=== PATIENT | female | born 1980 | race Caucasian/White ===

== ENCOUNTER → 2023-07-11 10:23 | Outpatient (REF) | payer BC, SELFPAY | LOC: RCS 10:23 | PROVIDERS: ATTENDING PHYSICIAN Family Medicine | DX: R00.2 Palpitations (principal) | CPT/HCPCS: 93005 ==

== ENCOUNTER 2023-07-23 21:21 | Emergency (ER) | payer BC, SELFPAY ==
[2023-07-23 21:26] VITALS: BP 114/75
--- NOTE | 2023-07-23 21:37 | ED.GENMED ---
History of Present Illness
General
Chief Complaint: Chest Pain
Time Seen by Provider: 07/23/23 21:37
Travel History
Have you had any contact with someone who has COVID-19?: No
Do you have any symptoms of coronavirus? Fever > 100 degrees, chills, cough, shortness of breath, sore throat, loss of taste or smell, muscle aches, or headache?: No
History of Present Illness
History of Present Illness:
HPI: Patient presents with chest pain and was seen by PMD for this about a week ago. This is described as a chest pressure sensation but also has palpitations 'in my throat' and also some burning sensation in the left arm. She also wondered if
stress or anxiety could be a contributing factor.
EXAM:
GENERAL: Well appearing in no distress
HEENT: Moist oral mucosa
CARDIOVASCULAR: No murmurs, normal heart rate, regular rhythm, No chest wall tenderness
PULMONARY: No respiratory distress, breath sounds are clear and equal
ABDOMEN: Soft with no peritoneal signs, no tenderness
NEUROLOGIC: Excellent strength all extremities, no coordination deficits
PSYCHIATRIC: Appropriate mental status, normal insight and judgement
EXTREMITIES: Nontender, no edema, moves all extremities equally
SKIN: No rash, no lesions
TIME OF INITIAL ENCOUNTER: 11:15 PM
NUMBER AND COMPLEXITY OF PROBLEMS ADDRESSED AT THE ENCOUNTER
� Chronic conditions affecting care: Has had chest pain and near syncope in the past but no significant chronic comorbidities
� Acute Exacerbation and/or Progression of Chronic Illness: This is an acute problem
� Differential Diagnosis includes: Stress/anxiety, ACS, pulmonary etiology unlikely
AMOUNT AND/OR COMPLEXITY OF DATA TO BE REVIEWED AND ANALYZED
� I performed an independent evaluation of and my interpretation is:
EKG: Sinus 63, normal axis, no acute ST abnormality, no change from 07/11/2023, first-degree AV block noted since 12/08/2022
CT:
X-rays:I personally viewed chest x-ray and see no acute abnormality
Laboratory Studies: CBC, chemistries, troponin negative
Other:
� Review of other/old records: Patient was admitted here 1 year ago related to infected kidney stone; I reviewed the EKG from 12 days ago
� Clinical information was obtained by an independent historian: Spoke to at bed
� Prescriptions/Medications Considered but not given:
� Further testing considered but not performed:
RISK OF COMPLICATIONS AND/OR MORBIDITY OR MORTALITY OF PATIENT MANAGEMENT
� Social determinants of health affecting care: Lives at home
� Discussion with other providers:
� Escalation of care including admission/observation vs risk of discharge considered: The patient appears comfortable. Troponin negative despite a week of intermittent symptoms. EKG is normal. She does not have an appointment
to see [facility] until [facility] pain hotline used.
Phy Exam
Physical Exam
Physical Exam:
See HPI
Scores
Heart Score for Chest Pain Patients
STEMI patient?: Not applicable
Course
Orders/Labs/Results
Orders:
Orders
07/23/23 21:25
Electrocardiogram (*1) Urgent
Reason for Study: Chest Pain
Cardiac Monitoring- Treatment ONCE
EKG- Treatment ONCE
IV Insert/Care/Rem.- Treatment PRN
O2 Therapy [RESP] Urgent
Titrate/Wean O2 to maintain O2 sat greater than (%): 90
Special Instructions: Maintain sats >/=90%
Pulse Ox/spot Check [RESP] Urgent
Quantity: 1
Special Instructions: ON ROOM AIR
07/23/23 21:57
Complete Blood Count/With Diff Urgent
Comprehensive Metabolic Panel Urgent
Troponin I Urgent
07/23/23 23:31
CR Chest - 2 Views Urgent
Comment:
Reason For Exam: cp
Abnormal Lab Results
07/23/23
21:57
RBC 3.91 L 10^6/uL
(4.20-5.40)
Hgb 11.2 L g/dL
(12.0-16.0)
Hct 32.9 L %
(37.0-47.0)
RDW 15.1 H %
(11.5-14.5)
Eosinophils % 6.2 H %
(0-6)
Sodium 134 L mmol/L
(135-145)
07/23/23 21:57
07/23/23 21:57
Vital Signs
Initial and Last Documented VS:
Initial Vital Signs
Temp Resp BP Pulse Ox
98.1 F 18 114/75 99
07/23/23 21:26 07/23/23 21:26 07/23/23 21:26 07/23/23 21:26
Last Documented Vital Signs
Temp Pulse Resp BP Pulse Ox
98.1 F 65 12 99/62 99
07/23/23 21:26 07/24/23 00:15 07/24/23 00:15 07/24/23 00:29 07/24/23 00:30
*Critical Care Note
Total Time (30-74mins, 75-104mins- exclusive of procedures): Not Applicable
ED Attending Note
-
Portions of this chart may have been created with voice recognition software.� Occasional wrong word or��sound alike� substitutions may have occurred due to the inherent limitations of voice recognition software.
Discharge Plan
Departure
Patient Disposition: Home (Routine Discharge)
Date of Disposition: 07/24/23
Time of Disposition: 00:15
Patient with high blood pressure during this ER visit?: No
Discharge Problem:
Chest pain
Instructions: Chest Pain CBC Follow Up
Prescriptions:
No Action
cefdinir 300 mg capsule
300 mg PO BID Qty: 14 0RF
Referrals:
Isabelle Lewis MD [Family Provider] -
Kong Parker MD [Active] -
Activity Restrictions/Additional Instructions:
Somebody from [facility] cardiology should be calling you for follow-up�if you do not hear from them, please call their office. Return here if worse.
Interventions
Interventions:
*Risk Screen - Suicide Last Done: 07/23/23 21:59
*General Assessment Last Done: 07/23/23 21:59
*Neglect/Abuse Screening Last Done: 07/23/23 21:59
ED- Fall Risk Assessment Last Done: 07/23/23 23:20
ED- Cardiac Assessment Last Done: 07/23/23 23:20
[2023-07-23 22:05] LABS: % Basophils 0.8 % (0-2); % Eosinophils 6.2 % (0-6); % Immature Granulocytes 0.3 % (0-0.5); % Lymphocytes 29.3 % (20.5-51.1); % Monocytes 5.4 % (1.7-9.3); Absolute Basophils 0.1 10^3/uL (0-0.2); Absolute Eosinophils 0.5 10^3/uL (0-0.7); Absolute Lymphocytes 2.1 10^3/uL (1.2-3.4); Absolute Monocytes 0.4 10^3/uL (0.1-0.6); Absolute Neutrophils 4.2 10^3/uL (1.4-6.5); Hematocrit 32.9 % (37.0-47.0); Hemoglobin 11.2 g/dL (12.0-16.0); Mean Corpuscular Hgb 28.6 pg (27.0-31.0); Mean Corpuscular Volume 84.1 fL (81.0-99.0); Mean Platelet Volume 9.8 fL (7.4-10.4); Nucleated Red Blood Cells % 0 %; Platelet Count 269 10^3/uL (130-400); Red Blood Cell Count 3.91 10^6/uL (4.20-5.40); Red Cell Dist. Width 15.1 % (11.5-14.5); White Blood Cell Count 7.2 10^3/uL (4.8-10.8)
[2023-07-23 22:27] LABS: ALT (SGPT) 16 U/L (0-35); AST (SGOT) 26 U/L (14-36); Albumin 4.5 g/dl (3.5-5.0); Alkaline Phosphatase 65 U/L (38-126); Blood Urea Nitrogen 13 mg/dl (7-17); Calcium 9.2 mg/dl (8.4-10.2); Carbon Dioxide 23 mmol/L (22-30); Chloride 106 mmol/L (98-107); Glucose 93 mg/dl (70-99); Sodium 134 mmol/L (135-145); Total Bilirubin 0.3 mg/dl (0.2-1.3); Total Protein 7.1 g/dl (6.3-8.2); eGFR > 60.00
[2023-07-23 22:30] LABS: Troponin I < 0.012 ng/ml
[2023-07-23 23:30] VITALS: BP 95/54
[2023-07-24] VITALS: BP 99/59
[2023-07-24 00:29] VITALS: BP 99/62
== END 2023-07-24 00:30 | disposition home or self-care (01) ==
LOC: EMR 21:21
PROVIDERS: Emergency Medicine; EMERGENCY PHYSICIAN Emergency Medicine; FAMILY PHYSICIAN Family Medicine
DX: R07.89 Other chest pain (principal); R00.2 Palpitations
CPT/HCPCS: 99285; 71046; 80053; 84484; 85025; 93005

== ENCOUNTER → 2023-08-06 13:25 | Outpatient (REF) | payer BC, SELFPAY | LOC: RCS 13:25 | PROVIDERS: ATTENDING PHYSICIAN Internal Medicine Cardiovascular Disease; FAMILY PHYSICIAN Family Medicine | DX: R00.2 Palpitations (principal) | CPT/HCPCS: 93225; 93226 ==

== ENCOUNTER → 2023-08-13 15:47 | Outpatient (REF) | payer BC, SELFPAY | LOC: DHCBC HW 15:47 | PROVIDERS: ATTENDING PHYSICIAN Internal Medicine Cardiovascular Disease; FAMILY PHYSICIAN Family Medicine | DX: R00.2 Palpitations (principal) | CPT/HCPCS: 93306 ==

== ENCOUNTER → 2023-09-13 10:29 | Outpatient (REF) | payer BC, SELFPAY | LOC: RCS 10:29 | PROVIDERS: ATTENDING PHYSICIAN Nurse Practitioner; FAMILY PHYSICIAN Family Medicine | DX: R07.89 Other chest pain (principal); R00.2 Palpitations | CPT/HCPCS: 93017 ==

== ENCOUNTER → 2024-08-05 12:56 | Outpatient (REF) | payer BC, SELFPAY | LOC: HWRAD 12:56 | PROVIDERS: ATTENDING PHYSICIAN Physician Assistant; FAMILY PHYSICIAN Family Medicine | DX: N20.0 Calculus of kidney (principal); R82.994 Hypercalciuria | CPT/HCPCS: 76775 ==